=== PATIENT | male | born 1985 | race Caucasian/White ===

== ENCOUNTER 2016-04-04 09:28 | Emergency (ER) | payer OTHER ==
[~2016-04-04] VITALS: Wt 57.5 kg
[2016-04-04] MEDS ORDERED: HYDROmorphONE 2 MG/ML SYG IV STA ×2 (10:39→12:39)
[2016-04-04] MEDS ORDERED: SOD CHLORIDE 0.9% 1,000 ML IV STA (10:39)
[2016-04-04] MEDS ORDERED: ONDANSETRON 4 MG INJ IV STA ×2 (10:39→12:39)
[2016-04-04 11:24] LABS: BASOPHILS % 0.3 % (0.0-2.0); EOSINOPHILS # 0.1 10^3/ul (0.0-0.5); EOSINOPHILS % 0.6 % (0.0-7.0); HEMATOCRIT 40.5 % (42.0-52.0); LYMPHOCYTES # 2.1 10^3/ul (0.8-2.9); LYMPHOCYTES % 23.1 % (15.0-51.0); MEAN CORPUSCULAR HEMOGLOBIN 29.2 pg (29.0-33.0); MEAN CORPUSCULAR HGB CONC 34.5 g/dl (32.0-37.0); MEAN CORPUSCULAR VOLUME 84.8 fl (82.0-101.0); MEAN PLATELET VOLUME 7.5 fl (7.4-10.4); MONOCYTE # 0.7 10^3/ul (0.3-0.9); MONOCYTES % 7.5 % (0.0-11.0); NEUTROPHIL # 6.2 10^3/ul (1.6-7.5); NEUTROPHILS % 68.5 % (39.0-77.0); PLATELET COUNT 172 10^3/UL (140-440); RED BLOOD COUNT 4.77 10^6/ul (4.70-6.10); RED CELL DISTRIBUTION WIDTH 13.1 % (11.5-14.5); UNCORRECTED WBC 9.1 10^3/ul (4.8-10.8); WHITE BLOOD COUNT 9.1 10^3/ul (4.8-10.8)
[2016-04-04 11:29] LABS: ALBUMIN 4.3 g/dl (3.3-4.9)
[2016-04-04 11:32] LABS: ALBUMIN/GLOBULIN RATIO 1.13; BILIRUBIN,INDIRECT 0.4 mg/dl (0-1.1); BILIRUBIN,TOTAL 0.4 mg/dl (0.2-1.3); CREATININE 0.81 mg/dl (0.61-1.24); TOTAL PROTEIN 8.1 g/dl (6.1-8.1)
[2016-04-04 11:33] LABS: CALCIUM 9.8 mg/dl (8.4-10.2)
[2016-04-04 11:39] LABS: CONDITION 1
--- NOTE | 2016-04-04 11:39 | RADRPT ---
PROCEDURE: CT Abdomen and Pelvis without contrast. CLINICAL INDICATION: Abdominal and pelvic pain. Right flank pain and right scrotal pain. TECHNIQUE: CT scan of the abdomen and pelvis without contrast was performed. Coronal and sagittal reformatted images were obtained from the axial source images. Images were reviewed on a high-resolu Method PACS workstation. Total exam DLP is 328.02 mGy-cm. CTDIvol is 5.86 mGy. One or more of the fo [place] dose reduction techniques were used: Automated exposure control, adjustment of the mA and/or kV according to patient size, use of iterative reconstruction technique. COMPARISON: None. FINDINGS: The lung bases are normal. There is no pleural effusion. The liver is normal in size and attenuation. There is no focal hepatic lesion. The gallbladder and bile ducts are normal. The spleen is normal in size. There is no focal splenic lesion. Both adrenals are normal with no enlargement or mass. The pancreas is unremarkable with no mass or evidence of pancreatitis. There is no renal mass or hydronephrosis. There is no renal calculus or ureteral calculus. The abdominal aorta is not dilated. There is no retroperitoneal lymphadenopathy or mass. There is no pelvic lymphadenopathy or mass. The bladder and distal ureters are normal. The periappendiceal region is unremarkable with no evidence of appendicitis. The bowel and mesentery are normal. There is no free fluid or free gas. The osseous structures are unremarkable with no fracture or lytic lesion. IMPRESSION: 1. No urinary tract calculus or hydronephrosis. 2. No evidence of appendicitis. 3. Unremarkable CT scan of the abdomen and pelvis. RPTAT: QQ .Gerald Agosto MD, Date Time Electronically viewed and signed by .Gerald Agosto MD, on 04/04/2016 11:39 .R/
--- NOTE | 2016-04-04 11:50 | ERD ---
ER Documentation Chief Complaint Date/Time DATE: 04/04/16 TIME: 11:43 Chief Complaint GROIN PAIN X 3 DAYS HPI 30-year-old otherwise healthy male presents to the emergency department complaining of intense 10 out of 10 constant sharp scrotal pain which she states radiates to the right flank as well as swelling and erythema. Patient states the pain has gradually worsened over the last 3 days. He denies any exacerbating events including physical activity, running, jumping. Patient notes that he was seen and treated at [facility] yesterday. He notes he underwent a scrotal ultrasound and received IV pain medication which helped alleviate the symptoms only temporarily. Patient states he received 1 dose of antibiotics while in the emergency department yesterday and then was given a prescription for 500 mg ciprofloxacin twice daily as well as [place] for pain control. Patient states his symptoms have worsened and reports mild dysuria today.. Patient denies any bleeding, hematuria, discharge, fever, nausea, vomiting, diarrhea. Patient's partner accompanying him to visit today and denies any symptoms of pelvic pain or discharge. Patient's last bowel movement was yesterday and normal for him. ROS All systems reviewed and are negative except as per history of present illness. Medications Home Meds Active Scripts Doxycycline Hyclate* (Doxycycline Hyclate*) 100 Mg Tablet.dr, 100 MG PO BID for 10 Days, TAB Prov:JEFERSON WHALEN PA-C 04/04/16 Ibuprofen* (Motrin*) 600 Mg Tab, 600 MG PO Q6, #30 TAB Prov:JEFERSON WHALEN PA-C 04/04/16 Docusate Sodium* (Colace*) 100 Mg Capsule, 100 MG PO DAILY, #30 CAP Prov:JEFERSON WHALEN PA-C 04/04/16 Ondansetron (Ondansetron Odt) 4 Mg Tab.rapdis, 4 MG PO Q6H Y for NAUSEA AND/OR VOMITING, #10 TAB Prov:JEFERSON WHALEN PA-C 04/04/16 Allergies Allergies: Coded Allergies: No Known Allergy (Unverified , 04/04/16) PMhx/Soc Medical and Surgical Hx: pt denies Medical Hx, pt denies Surgical Hx Hx Alcohol Use: Yes Hx Substance Use: Yes Hx Tobacco Use: Yes Smoking Status: Current every day smoker Physical Exam Vitals Vital Signs Date Time Temp Pulse Resp B/P Pulse Ox O2 Delivery O2 Flow Rate FiO2 04/04/16 09:34 99.2 84 18 107/69 99 Physical Exam Const: Well-developed, well-nourished, in moderate distress Head: Atraumatic Eyes: Normal Conjunctiva ENT: Normal External Ears, Nose and Mouth. Neck: Full range of motion..~ No meningismus. Resp: Clear to auscultation bilaterally Cardio: Regular rate and rhythm, no murmurs Abd: Soft, non tender, non distended. Normal bowel sounds Skin: No petechiae or rashes Back: No midline or flank tenderness Ext: No cyanosis, or edema Neur: Awake and alert Psych: Normal Mood and Affect : Induration and swelling of bilateral scrotum and epididymis with exquisite tenderness. No evidence of bleeding or discharge. No evidence of tissue cyanosis or gangrene. Result Diagram: 04/04/16 1103 04/04/16 1103 Results 24 hrs Laboratory Tests Test 04/04/16 11:03 04/04/16 12:28 Alanine Aminotransferase (ALT/SGPT) 27IU/L Albumin 4.3g/dl Albumin/Globulin Ratio 1.13 Alkaline Phosphatase 78IU/L Anion Gap 17 Aspartate Amino Transf (AST/SGOT) 42IU/L Basophils # 0.010^3/ul Basophils % 0.3% Blood Urea Nitrogen 13mg/dl Calcium Level 9.8mg/dl Carbon Dioxide Level 26mmol/L Chloride Level 102mmol/L Creatinine 0.81mg/dl Direct Bilirubin 0.00mg/dl Eosinophils # 0.110^3/ul Eosinophils % 0.6% Globulin 3.80g/dl Glucose Level 77mg/dl Hematocrit 40.5% Hemoglobin 14.0g/dl Indirect Bilirubin 0.4mg/dl Lymphocytes # 2.110^3/ul Lymphocytes % 23.1% Mean Corpuscular Hemoglobin 29.2pg Mean Corpuscular Hemoglobin Concent 34.5g/dl Mean Corpuscular Volume 84.8fl Mean Platelet Volume 7.5fl Monocytes # 0.710^3/ul Monocytes % 7.5% Neutrophils # 6.210^3/ul Neutrophils % 68.5% Nucleated Red Blood Cells # 0.010^3/ul Nucleated Red Blood Cells % 0.0/100WBC Platelet Count 74220^3/UL Potassium Level 4.0mmol/L Red Blood Count 4.7710^6/ul Red Cell Distribution Width 13.1% Sodium Level 141mmol/L Total Bilirubin 0.4mg/dl Total Protein 8.1g/dl White Blood Count 9.110^3/ul Urine Bacteria RARE Urine Bilirubin NEGATIVE Urine Clarity CLEAR Urine Color LT. YELLOW Urine Epithelial Cells RARE Urine Glucose NEGATIVE% Urine Hemoglobin NEGATIVE Urine Ketones TRACE Urine Leukocyte Esterase TRACE Urine Microscopic RBC NONE SEEN/HPF Urine Microscopic WBC 0-2/HPF Urine Nitrite NEGATIVE Urine Specific [place] 1.010 Urine Total Protein NEGATIVE Urine Urobilinogen 0.2 E.U./dL Urine pH 6.0 Current Medications Medications (Trade) Dose Ordered Sig/Franck Route PRN Reason Start Time Stop Time Status Last Admin Dose Admin Sodium Chloride (NS) 1,000 ml @ 1,000 mls/hr Q1H STAT IV 04/04/16 10:39 04/04/16 11:38 DC 04/04/16 11:00 Hydromorphone HCl (Dilaudid) 2 mg ONCE STAT IV 04/04/16 10:39 04/04/16 10:41 DC 04/04/16 11:00 Ondansetron HCl (Zofran Inj) 4 mg ONCE STAT IV 04/04/16 10:39 04/04/16 10:41 DC 04/04/16 11:00 Doxycycline Hyclate (Vibramycin) 100 mg ONCE ONCE PO 04/04/16 12:30 04/04/16 12:31 DC 04/04/16 12:52 Hydromorphone HCl (Dilaudid) 2 mg ONCE STAT IV 04/04/16 12:39 04/04/16 12:42 DC 04/04/16 12:53 Ondansetron HCl (Zofran Inj) 4 mg ONCE STAT IV 04/04/16 12:39 04/04/16 12:42 DC 04/04/16 12:53 Procedures/MDM PROCEDURE: Scrotal ultrasound CLINICAL INDICATION: Scrotal pain, redness, and swelling TECHNIQUE: Scrotal ultrasound was performed in multiple obliquities. Carpenter scale and color imaging was performed. Images were reviewed on high resolution PACS monitors. COMPARISON: None available FINDINGS: The testes are normal in size and echogenicity. Flow is identified in the bilateral testes. No testicular mass or cyst is identified. No hydroceles are seen. The right epididymis appears mildly enlarged and heterogeneous. There is increased vascularity in the right epididymis and right testis.. There is no evidence for a varicocele. IMPRESSION: 1. Findings compatible with right epididymoorchitis. 2. No ultrasonographic evidence of testicular torsion. RPTAT: KK .Robin Serrano MD, MD Date Time Electronically viewed and signed by .Robin Serrano MD, MD on 2016 12:28 .B/ CC: JEFERSON WHALEN-[place] PROCEDURE: CT Abdomen and Pelvis without contrast. CLINICAL INDICATION: Abdominal and pelvic pain. Right flank pain and right scrotal pain. TECHNIQUE: CT scan of the abdomen and pelvis without contrast was performed. Coronal and sagittal reformatted images were obtained from the axial source images. Images were reviewed on a high-resolution PACS workstation. Total exam DLP is 328.02 mGy-cm. CTDIvol is 5.86 mGy. One or more of the following dose reduction techniques were used: Automated exposure control, adjustment of the mA and/or kV according to patient size, use of iterative reconstruction technique. COMPARISON: None. FINDINGS: The lung bases are normal. There is no pleural effusion. The liver is normal in size and attenuation. There is no focal hepatic lesion. The gallbladder and bile ducts are normal. The spleen is normal in size. There is no focal splenic lesion. Both adrenals are normal with no enlargement or mass. The pancreas is unremarkable with no mass or evidence of pancreatitis. There is no renal mass or hydronephrosis. There is no renal calculus or ureteral calculus. The abdominal aorta is not dilated. There is no retroperitoneal lymphadenopathy or mass. There is no pelvic lymphadenopathy or mass. The bladder and distal ureters are normal. The periappendiceal region is unremarkable with no evidence of appendicitis. The bowel and mesentery are normal. There is no free fluid or free gas. The osseous structures are unremarkable with no fracture or lytic lesion. IMPRESSION: 1. No urinary tract calculus or hydronephrosis. 2. No evidence of appendicitis. 3. Unremarkable CT scan of the abdomen and pelvis. RPTAT: QQ .Gerald Agosto MD, Date Time Electronically viewed and signed by .Gerald Agosto MD, on 04/04/2016 11:39 .R/ CC: JEFERSON WHALEN PA-C Vital signs were reviewed. Patient is afebrile. Patient is not hypoxic. Patient is normotensive. Genital urinary exam revealed induration and erythema as well as severe tenderness to scrotum. CBC showed no evidence of systemic infection or severe anemia. CMP showed no evidence of electrolyte abnormalities, severe acidosis, alkalosis , renal failure, or liver disease. Lipase showed no evidence of acute pancreatitis. UA showed no evidence of acute infection or hematuria. Urine test was negative. Given these findings, the patients presentation is most consistent with []. I have a low suspicion for []. Patient to continue ciprofloxacin as directed as well as doxycycline Continue [place] for pain management Based on patient's history of present illness and physical examination the decision was made to discharge. The patient was re-evaluated after ED treatment and stabilizing measures, and symptoms have improved. There is no evidence of life threatening injuries or illnesses at this time. On re-examination, patient resting in no distress, stable vital signs, reports feeling better and safe for discharge with outpatient follow up with PMD in 1-2 days. Patient given return precautions. JEFERSON WHALEN PA-C Apr 04, 2016 11:50
--- NOTE | 2016-04-04 12:29 | RADRPT ---
PROCEDURE: Scrotal ultrasound CLINICAL INDICATION: Scrotal pain, redness, and swelling TECHNIQUE: Scrotal ultrasound was performed in multiple obliquities. Carpenter scale and color imaging was performed. Images were reviewed on high resolution PACS monitors. COMPARISON: None available FINDINGS: The testes are normal in size and echogenicity. Flow is identified in the bilateral testes. No nilsa ticular mass or cyst is identified. No hydroceles are seen. The right epididymis appears mildly enlarged and heterogeneous. There is increased vascularity in the right epididymis and right testi s.. There is no evidence for a varicocele. IMPRESSION: 1. Findings compatible with right epididymoorchitis. 2. No ultrasonographic evidence of testicular torsion. RPTAT: KK .Robin Serrano MD, MD Date Time Electronically viewed and signed by .Robin Serrano MD, MD on 04/04/2016 12:28 .B/
[2016-04-04] MEDS ORDERED: DOXYCYCLINE 100 MG TAB PO ONE (12:30)
[2016-04-04 12:40] LABS: ADD UMIC YES; URINE BILIRUBIN (Dip) NEGATIVE (NEGATIVE); URINE BLOOD (Dip) NEGATIVE (NEGATIVE); URINE COLOR LT. YELLOW (YELLOW); URINE GLUCOSE (Dip) NEGATIVE (NEGATIVE); URINE KETONES (Dip) TRACE (NEGATIVE); URINE LEUKOCYTE ESTERASE (Dip) TRACE (NEGATIVE); URINE NITRITE (Dip) NEGATIVE (NEGATIVE); URINE TOTAL PROTEIN (Dip) NEGATIVE (NEGATIVE); URINE UROBILINOGEN (Dip) 0.2 E.U./dL (0.1-1.0)
[2016-04-04 12:56] LABS: BACTERIA,URINE RARE; URINE RBCS NONE SEEN /HPF (0)
[2016-04-04] MEDS ORDERED: DOCU-144 PO (12:58)
[2016-04-04] MEDS ORDERED: IBUP-1542 PO (12:58)
[2016-04-04] MEDS ORDERED: ONDA4TAB14 PO (12:58)
[2016-04-04] MEDS ORDERED: DOXY100T20 PO (13:00)
[2016-04-04] MEDS ORDERED: KETOROLAC 30 MG INJ IV STA (13:19)
[2016-04-04 14:41] VITALS: BP 116/68; PULSE 88; RESP 20
== END 2016-04-04 14:43 | disposition home or self-care (01) ==
LOC: FTE 09:28
DX: N50.82 Scrotal pain (principal)
CPT/HCPCS: 74176; 76870; 80053; 81001; 81003; 85025; 87591; J1170; J1885; J2405; J7030; 36415; 96374; 96375; 96376